=== PATIENT | female | born 1980 | race Caucasian/White ===

== ENCOUNTER 2017-03-28 01:03 | Inpatient (IN) | payer BC ==
[~2017-03-28] VITALS: Ht 170.2 cm; Wt 88.7 kg
[2017-03-28] MEDS ORDERED: RANI15TA PO (01:25)
[2017-03-28] MEDS ORDERED: METOCLOPRAMIDE INJ 10MG/2ML VIAL (J2765) IV ONE (02:00)
[2017-03-28] MEDS ORDERED: HYDROmorphone HCL 1 MG/ML SYRINGE (J1170) IV ONE (02:00)
[2017-03-28] MEDS ORDERED: NS 1,000 ML IV ONE (02:00)
[2017-03-28 02:07] LABS: BASO # 0.1 K/mm3 (0.0-0.2); BASO % 0.6 % (0.0-1.0); EOS # 0.3 K/mm3 (0.0-0.50); EOS % 2.4 % (0.0-3.0); LARGE UNSTAINED CELL # 0.1 K/mm3 (0.0-0.4); LYMPH # 2.6 K/mm3 (1.5-4.5); LYMPH % 22.8 % (24.0-44.0); MEAN CORPUSCULAR HEMOGLOBIN 29.6 pg (27.0-33.0); MEAN CORPUSCULAR HGB CONC 33.4 g/dl (32.0-36.5); MEAN CORPUSCULAR VOLUME 88.6 fl (80.0-96.0); MONO # 0.4 K/mm3 (0.0-0.8); MONO % 3.8 % (0.0-5.0); NEUTROPHILS # 7.7 K/mm3 (1.8-7.7); NEUTROPHILS % 69.4 % (36.0-66.0); PLATELET COUNT, AUTOMATED 226 k/mm3 (150-450); RED CELL DISTRIBUTION WIDTH 12.8 % (11.5-14.5)
[2017-03-28 02:29] LABS: CONTROL LINE HCG INT CTR LINE PRESENT
[2017-03-28 02:36] LABS: ALBUMIN/GLOBULIN RATIO 1.05 (1.00-1.93); ALKALINE PHOSPHATASE 82 U/L (45-117); ALT/SGPT 33 U/L (12-78); AMYLASE 67 U/L (25-115); ANION GAP 6 MEQ/L (8-16); AST/SGOT 35 U/L (15-37); BILIRUBIN,DIRECT 0.2 MG/DL (0.0-0.2); BILIRUBIN,TOTAL 0.7 MG/DL (0.2-1.0); BLOOD UREA NITROGEN 18 MG/DL (7-18); CALCIUM LEVEL 9.1 MG/DL (8.5-10.1); CARBON DIOXIDE LEVEL 29 MEQ/L (21-32); CHLORIDE LEVEL 107 MEQ/L (98-107); CREATININE FOR GFR 0.72 MG/DL (0.55-1.02); GLOMERULAR FILTRATION RATE > 60.0 (>60); GLUCOSE, FASTING 115 MG/DL (70-105); POTASSIUM SERUM 3.6 MEQ/L (3.5-5.1); SODIUM LEVEL 142 MEQ/L (136-145); TOTAL PROTEIN 7.8 GM/DL (6.4-8.2)
[2017-03-28] MEDS ORDERED: RANI1TAB38 PO (03:51)
--- NOTE | 2017-03-28 04:50 | REPUSA ---
CLINICAL HISTORY: Abdominal pain. TECHNIQUE: Realtime sonographic images were obtained in multiple projections. COMMENTS: The liver is of normal size, parenchyma demonstrates normal echogenicity. No discrete hepatic mass is seen. There is no intrahepatic biliary ductal dilatation. CBD is dilated, measures 8 mm. The gallbladder is distended and contains small calculi in the dependent portion. Positive Werner sign was reported by technologist. The gallbladder wall is not thickened and there is no pericholecystic fluid. There is no abdominal ascites. The right kidney measures 11.3 cm , free of hydronephrosis. IMPRESSION: Gallstones. Positive Werner sign compatible with chronic cholecystitis. Mildly dilated common bile duct. Consider further evaluation with hepatobiliary scan and or MRCP. Thank you for your kind referral of this patient.
[2017-03-28] MEDS ORDERED: ONDANSETRON 4MG/2ML VIAL (J2405) IV PRN (05:30)
[2017-03-28] MEDS: KETOROLAC 30 MG/ML VIAL (J1885) IV PRN ×2 (05:41→13:41)
[2017-03-28] MEDS: NS 1,000 ML IV SCH ×2 (05:42→15:52)
[2017-03-28 06:05] LABS: CHOLESTEROL LEVEL 142 MG/DL (<200); TRIGLYCERIDES LEVEL 80 MG/DL (<150)
--- NOTE | 2017-03-28 06:14 | HPE ---
DATE OF ADMISSION: 03/28/2017 PRIMARY CARE PHYSICIAN: Dr. Ya in [place]. HISTORY OF PRESENT ILLNESS: The patient is a 36-year-old female with a past medical history of who has known history of gallstones she has been told for the last several months. 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 She for the last day has had progressively worsening epigastric discomfort without radiation and also worsened by dairy products or having an empty stomach. She denies chest pain, fevers, but did have some episodes of chills. Denies associated nausea or vomiting. No diarrhea. No recent travel. No changes in her diet or any new medications. PAST MEDICAL HISTORY: 1. Two miscarriages. 2. Cholelithiasis. 3. Gastroesophageal reflux disease. HOME MEDICATIONS: - She has a prescription for ranitidine 150 mg daily, which she has not taken for many months. ALLERGIES: AMOXICILLIN, BANANAS, AZITHROMYCIN, CODEINE, and BACTRIM. PAST SURGICAL HISTORY: Laparoscopic ovarian repair, tonsils and adenoids, SOCIAL HISTORY: She denies tobacco, alcohol or illicit drug use. lives in [place]. OBJECTIVE: Temperature 96.8, heart rate 74, respiratory rate 16, blood pressure (BP) 95/58, oxygen saturation 98% on room air. General: She is a very pleasant, middle-aged, obese, female sitting up on the stretcher. She does not appear to be in any acute distress whatsoever. HEENT: Cranial nerves II-XII are grossly intact. She has moist mucous membranes. No elevation of central venous pressure (CVP). Cardiovascular exam: S1, S2, regular. Respiratory exam is clear. Abdominal exam: Bowel sounds are present but diminished. The abdomen is soft. There is some guarding. There is notable tenderness substernally in the epigastric region as well as the right upper quadrant with positive Werner's. Extremities: No clubbing, cyanosis or edema. LABORATORY STUDIES: WBC 11.0, hemoglobin 14.4, platelet count 226. Chemistry panel: Sodium 142, potassium 3.6, chloride 107, bicarbonate 29, BUN 8, creatinine 0.7. Liver function tests within normal limits and hCG quantitative was negative. Lipase elevated at 153. The patient did have an ultrasound of the abdomen that revealed gallstones, positive Werner sign compatible with chronic cholecystitis, mildly dilated common bile duct. Consider further evaluation of biliary scan and/or MRCP. ASSESSMENT AND PLAN: This is a 36-year-old female with known history of gallstones now presenting with what appears to be gallstone pancreatitis and possibly retained stones in the common bile duct. PROBLEMS: 1. Gallstone pancreatitis with possible retained gallstones in the common bile duct. The patient will be admitted to the medical-surgical floor. She will be nothing by mouth, provided with intravenous (IV) fluids and IV pain medication. The emergency room (ER) has already spoken with Dr. Guardado and so have I. He has agreed to see the patient in consultation and will order the patient for an MRCP. There is a chance that she may spontaneously pass the stone. However, if this fails to be the case, she may benefit from endoscopic retrograde cholangiopancreatography (ERCP). For the time being, we will treat her as pancreatitis. We will check an international normalized ratio (INR) prior to any potential procedures and a lipid panel. 2. Gastroesophageal reflux disease. She does not always take the ranitidine that she is prescribed at home. I will provide her with IV proton pump inhibitor (PPI) while she is in hospital, and nothing by mouth. 3. Deep venous thrombosis (DVT) prophylaxis. She will be on Lovenox. DISPOSITION: The patient is admitted to the medical-surgical floor and Dr. Cummings's service will continue following the patient at 7 a.m. [facility]
[2017-03-28 06:25] VITALS: BP 118/69
[2017-03-28] MEDS: ENOXAPARIN 40 MG/0.4 ML SYRINGE (J1650) SC SCH (08:12)
[2017-03-28] MEDS: PANTOPRAZOLE 40MG INJ (PROTONIX) (C9113) IV SCH (08:12)
[2017-03-28] MEDS: ACETAMINOPHEN 500 MG TAB PO PRN (08:13)
[2017-03-28] MEDS ORDERED: MORPHINE 2 MG/ML 1ML SYRINGE IV PRN (10:15)
[2017-03-28 14:00] VITALS: BP 115/74
--- NOTE | 2017-03-28 17:49 | CR ---
DATE OF CONSULTATION: 03/28/2017 This is a 36-year white female who was admitted to [facility] ([facility]) for evaluation of epigastric pain starting approximately this afternoon. The patient denies any history of fatty food intolerance. She has been trying to lose weight and has lost about 38 pounds. She describes a similar bout of epigastric pain approximately eight weeks' ago. She described the pain as anterior in nature with no definite radiation. She had some nausea, but no fevers, night sweats or shaking chills. She is being admitted due to laboratory studies suggesting pancreatitis with an elevated lipase of over 500. No change in bowel habits. No rectal bleeding. PAST MEDICAL HISTORY: Positive for: 1. Two miscarriages. 2. Cholelithiasis. 3. Reflux. MEDICATIONS: Include: - ranitidine daily on a as needed basis ALLERGIES: She is allergic to AMOXICILLIN, AZITHROMYCIN, CODEINE and BACTRIM. PAST SURGICAL HISTORY: 1. Laparoscopic ovarian repair. 2. Tonsils and adenoids. SOCIAL HISTORY: Cigarettes, alcohol and drugs: None. GENERAL: She is a well-developed, well-nourished white female in no obvious acute distress. Appears stated age. VITAL SIGNS: Stable. CHEST: Clear to auscultation and percussion. CARDIOVASCULAR EXAM: Regular rhythm. No gallops or murmurs. ABDOMEN: Soft. Positive epigastric tenderness. No hepatosplenomegaly. Positive right upper quadrant tenderness. EXTREMITIES: No cyanosis, clubbing, edema. LABORATORY STUDIES: On admission, white count 11,000, hemoglobin normal, platelets are normal. Liver functions were completely normal. The patient lipase was greater than 500. Ultrasound of the right upper quadrant showed tenderness. The patient apparently did this by herself and revealed small stones with mildly dilated biliary tract. ANALYSIS: A 36-year-old white female with sudden onset of epigastric pain. Ultrasound suggesting gallstones with normal liver functions and now elevated lipase that was greater than 500. This suggests pancreatitis. Unclear whether the etiology is due to passing the stone, which is gallstone pancreatitis or biliary sphincter spasm. There is some mild biliary tract dilatation to 8 mm, but the patient's liver functions are all completely normal. The patient stated that approximately eight weeks ago, she had a similar episode and laboratory studies again showed an elevated lipase with elevation of her liver functions. ASSESSMENT: 1. Control patient's pain. 2. Obtain an magnetic resonance cholangiopancreatography (MRCP) to evaluate the biliary tract more carefully with possible consideration for an endoscopic retrograde cholangiopancreatography (ERCP) if patient's MRCP suggests common bile duct stones or choledocholithiasis. 3. The patient should be seen by surgery for consideration for a laparoscopic cholecystectomy. PLAN 1. Await magnetic resonance cholangiopancreatography (MRCP) results. 2. Follow serial labs. 3. Look for interval change in her liver functions. 4. Possible consideration for endoscopic retrograde cholangiopancreatography (ERCP). 5. Pain control.
[2017-03-28 22:00] VITALS: BP 115/79
[2017-03-29] MEDS: NS 1,000 ML IV SCH (02:24)
[2017-03-29] MEDS: ACETAMINOPHEN 500 MG TAB PO PRN ×2 (03:14→08:26)
[2017-03-29 06:00] VITALS: BP 118/65
[2017-03-29 06:08] LABS: MEAN CORPUSCULAR HEMOGLOBIN 29.6 pg (27.0-33.0); MEAN CORPUSCULAR HGB CONC 32.8 g/dl (32.0-36.5); MEAN CORPUSCULAR VOLUME 90.1 fl (80.0-96.0); RED CELL DISTRIBUTION WIDTH 12.8 % (11.5-14.5); WHITE BLOOD COUNT 5.5 K/mm3 (4.0-10.0)
[2017-03-29 06:26] LABS: ALBUMIN 2.9 GM/DL (3.2-5.2); ALBUMIN/GLOBULIN RATIO 0.97 (1.00-1.93); ALKALINE PHOSPHATASE 84 U/L (45-117); ALT/SGPT 214 U/L (12-78); ANION GAP 10 MEQ/L (8-16); AST/SGOT 133 U/L (15-37); BLOOD UREA NITROGEN 12 MG/DL (7-18); CALCIUM LEVEL 8.2 MG/DL (8.5-10.1); CARBON DIOXIDE LEVEL 23 MEQ/L (21-32); CHLORIDE LEVEL 115 MEQ/L (98-107); GLOMERULAR FILTRATION RATE > 60.0 (>60); GLUCOSE, FASTING 70 MG/DL (70-105); POTASSIUM SERUM 4.2 MEQ/L (3.5-5.1); SODIUM LEVEL 148 MEQ/L (136-145); TOTAL PROTEIN 5.9 GM/DL (6.4-8.2)
[2017-03-29] MEDS ORDERED: D5W/0.45% SODIUM CHLORIDE 1,000 ML IV SCH (07:00)
[2017-03-29] MEDS: PANTOPRAZOLE 40MG INJ (PROTONIX) (C9113) IV SCH (08:24)
[2017-03-29] MEDS: ENOXAPARIN 40 MG/0.4 ML SYRINGE (J1650) SC SCH (08:24)
--- NOTE | 2017-03-29 14:31 | DS.PDOC ---
Discharge Summary General Date of Admission Mar 28, 2017 at 05:25 Date of Discharge 03/29/17 Specialist/Consultants Involve: [place] Guardado Discharge Summary PROCEDURES PERFORMED DURING STAY: None. ADMITTING/DISCHARGE DIAGNOSES: Gallstone pancreatitis Chronic Cholecystitis Transaminitis Mild Dilatation of CBD on U/S Abdomen COMPLICATIONS/CHIEF COMPLAINT: Gallstone Pancreatitis. HISTORY OF PRESENT ILLNESS/HOSPITAL COURSE: . 36-year-old female with past medical history of gallstones for the last several months, and GERD presented to the ER with a chief complaint of progressively worsening epigastric discomfort associated with the consumption of dairy products. The patient denied any complaints of fevers, chills, chest pain, shortness of breath, palpitations, jaundice, or any nausea/vomiting/diarrhea. Patient denied any recent travel. She presented to the ER for further evaluation and management. In the ER, the patient's lipase level was noted to be elevated at 553. The patient's liver function tests were otherwise noted to be normal on admission. An ultrasound of the abdomen revealed gallstones, and a positive Werner's sign compatible with chronic cholecystitis. Mildly dilated common bile duct was also noted. The patient was admitted to the hospitalist service and a consult was placed to GI for further evaluation. During hospitalization, the patient was kept nothing by mouth and started on IV fluid hydration. Over the next 24 hours the patient's abdominal pain, and clinical condition significantly improved. The patient is able to tolerate a by mouth diet and is without any acute complaints of abdominal pain, nausea, vomiting, or any diarrhea. However, the patient was noted to have an elevation of her AST/ALT levels this morning. The patient was seen by gastroenterology and a MRCP of the abdomen was recommended to rule out gallstone pancreatitis, or any obstruction in the common bile duct. However, the patient has declined to have this done in the hospital, and states that she'll get this done as an outpatient. I have discussed my concern with the patient about potentially delaying the imaging study, as she may possibly need an ERCP study if the patient does have a positive MRCP study indicative of gallstones in the common bile duct. However, the patient states that she has a primary care physician appointment scheduled in 3 days, and will follow up with an outpatient MRCP study and a gastroenterology follow-up in [place], where she resides. This was discussed with Dr. Guardado of gastroenterology as well. In addition, I have also counseled the patient on the need to follow-up with surgery as an outpatient for further evaluation for cholecystectomy. I did discuss the need for the patient to follow-up with the aforementioned studies, and consultants at length. Risks, benefits, and alternative therapies were also discussed in regards to the patient declining imaging, and further workup here in the hospital. She has verbalized understanding of this, and notes that she will follow up with the aforementioned workup as an outpatient. At this time, the patient states that she is feeling much better and she is eager to return home. 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 She has also been consulted to return to the ER for any return/worsening of symptoms, or any other acute emergencies. DISCHARGE MEDICATIONS: Please see below. ALLERGIES: Please see below. PHYSICAL EXAMINATION ON DISCHARGE: VITAL SIGNS: Please see below. GENERAL: Awake, alert, oriented 4 HEENT: Normocephalic, atraumatic NECK: No JVD CARDIOVASCULAR EXAMINATION: Normal rate, normal S1, S2 RESPIRATORY EXAMINATION: Clear to auscultation bilaterally ABDOMINAL EXAMINATION: Soft, nontender, nondistended, no rebound tenderness, no guarding, no rigidity EXTREMITIES: No tenderness, no swelling LABORATORY DATA: Please see below. IMAGING: CLINICAL HISTORY: Abdominal pain. TECHNIQUE: Realtime sonographic images were obtained in multiple projections. COMMENTS: The liver is of normal size, parenchyma demonstrates normal echogenicity. No discrete hepatic mass is seen. There is no intrahepatic biliary ductal dilatation. CBD is dilated, measures 8 mm. The gallbladder is distended and contains small calculi in the dependent portion. Positive Werner sign was reported by technologist. The gallbladder wall is not thickened and there is no pericholecystic fluid. There is no abdominal ascites. The right kidney measures 11.3 cm , free of hydronephrosis. IMPRESSION: Gallstones. Positive Werner sign compatible with chronic cholecystitis. Mildly dilated common bile duct. Consider further evaluation with hepatobiliary scan and or MRCP. Thank you for your kind referral of this patient. PROGNOSIS: Fair ACTIVITY: As tolerated. DIET: . As tolerated DISCHARGE PLAN: DISPOSITION: . Home DISCHARGE INSTRUCTIONS: Follow up with PCP for scheduled appt on 04/01/17 Have outpatient MRCP done for further investigation of Gallstone Pancreatitis. Follow up with GI as an outpatient in [place] to monitor MRCP results, LFTs, and for possible follow up ERCP. Follow up with Surgery as an outpatient in [place] for further evaluation for cholecystectomy Return to the ER for any acute emergencies. DISCHARGE CONDITION: Stable. TIME SPENT ON DISCHARGE: Greater than 30 minutes. Vital Signs/I&Os Vital Signs Date Time Temp Pulse Resp B/P (MAP) Pulse Ox O2 Delivery O2 Flow Rate FiO2 03/29/17 06:00 98.3 74 18 118/65 (82) 98 Room Air I&O- Last 24 Hours up to 6 AM 03/29/17 06:00 Intake Total 2006 ml Output Total 1100 ml Balance 906 ml Laboratory Data Labs 24H Laboratory Tests 2 03/29/17 05:51: Anion Gap 10, Glomerular Filtration Rate > 60.0, Blood Urea Nitrogen 12, Creatinine 0.70, Sodium Level 148H, Potassium Level 4.2, Chloride Level 115H, Carbon Dioxide Level 23, Calcium Level 8.2L, Aspartate Amino Transf (AST/SGOT) 133H, Alanine Aminotransferase (ALT/SGPT) 214H, Alkaline Phosphatase 84, Total Bilirubin 1.0, Total Protein 5.9#L, Albumin 2.9#L, Albumin/Globulin Ratio 0.97L CBC/BMP Laboratory Tests 03/29/17 05:51 Red Blood Count 4.05, Mean Corpuscular Volume 90.1, Mean Corpuscular Hemoglobin 29.6, Mean Corpuscular Hemoglobin Concent 32.8, Red Cell Distribution Width 12.8 , Calcium Level 8.2 L, Aspartate Amino Transf (AST/SGOT) 133 H, Alanine Aminotransferase (ALT/SGPT) 214 H, Alkaline Phosphatase 84, Total Bilirubin 1.0 , Total Protein 5.9 #L, Albumin 2.9 #L Discharge Medications Scheduled Ranitidine Hcl (Ranitidine Maximum Streng) 150 Mg Tab, 1 TAB PO DAILY, (Reported ) Allergies Coded Allergies: Banana (Verified Allergy, Severe, anaphylaxsis, 03/28/17) Amoxicillin (Verified Allergy, Intermediate, UNSURE, 03/28/17) Clarithromycin (Verified Allergy, Intermediate, HIVES, 03/28/17) Sulfamethoxazole w/Trimethoprim (Verified Allergy, Intermediate, HIVES, ) Codeine (Verified Allergy, Unknown, SOB, 03/28/17) KATHYA MOSES MD Mar 29, 2017 14:31
== END 2017-03-29 14:51 | disposition home or self-care (01) | DRG 282 ==
LOC: M ED 01:03 → M ED INP 05:25 → M MSPAV 06:24
PROVIDERS: ADMIT Internal Medicine; ATTEND Internal Medicine
DX: K85.10 Biliary acute pancreatitis without necrosis or infection (principal); K83.8 Other specified diseases of biliary tract; K81.1 Chronic cholecystitis; K21.9 Gastro-esophageal reflux disease without esophagitis; Z88.0 Allergy status to penicillin; Z88.1 Allergy status to other antibiotic agents; Z88.2 Allergy status to sulfonamides; Z88.5 Allergy status to narcotic agent; Z91.018 Allergy to other foods; Z79.899 Other long term (current) drug therapy